=== PATIENT | male | born 1965 | race Caucasian/White ===

== ENCOUNTER 2019-08-16 10:45 | Inpatient (IN) | payer OTHER ==
[~2019-08-16] VITALS: Ht 193 cm; Wt 121.2 kg
[2019-08-16 12:40] VITALS: BP 146/98
[2019-08-16] MEDS ORDERED: PROPOFOL 50 ML ONE ×2 (12:46→16:21)
[2019-08-16] MEDS ORDERED: MIDAZOLAM 1 MG/ML, 2ML ONE (12:46)
[2019-08-16] MEDS ORDERED: FENTANYL PF 250 MCG/5ML ONE (12:47)
[2019-08-16] MEDS ORDERED: LIDOCAINE-MPF 2% ,5ML ONE (12:47)
[2019-08-16] MEDS ORDERED: ROCURONIUM 10MG/ML,5ML ONE (12:47)
[2019-08-16] MEDS ORDERED: PROPOFOL 10 MG/ML, 20ML ONE (12:47)
[2019-08-16] MEDS ORDERED: DEXAMETHASONE 4 MG/ML, 1ML ONE ×3 (12:47)
[2019-08-16] MEDS ORDERED: CEFAZOLIN 1,000 MG ONE ×2 (12:47)
[2019-08-16] MEDS ORDERED: ONDANSETRON 2MG/ML, 2ML ONE (12:47)
[2019-08-16] MEDS ORDERED: LACTATED RINGERS 1,000 ML IV SCH (12:56)
[2019-08-16] MEDS ORDERED: NONE PER PT (13:09)
[2019-08-16] MEDS ORDERED: EPINEPHRINE TOPICAL SOLN 1 MG/ML, 30ML ONE (13:51)
[2019-08-16] MEDS ORDERED: FLUORESCEIN SODIUM 500 MG/5 ML ONE (13:51)
[2019-08-16] MEDS ORDERED: OXYMETAZOLINE NASAL SPRAY 0.05%, 15ML ONE (13:51)
[2019-08-16] MEDS ORDERED: THROMBIN 5,000 UNIT VIAL TP ONE (13:51)
[2019-08-16] MEDS ORDERED: BACITRACIN 50,000 UNIT ONE (13:51)
[2019-08-16] MEDS ORDERED: LIDOCAINE 1%-EPI 1:100K, 20ML ONE (13:51)
[2019-08-16] MEDS ORDERED: MANNITOL PMX 20% 500 ML ONE (13:58)
[2019-08-16] MEDS ORDERED: FUROSEMIDE 20 MG/2 ML ONE (13:59)
[2019-08-16] MEDS ORDERED: ACETAMINOPHEN 650 MG/20.3 ML UDC PO PRN (15:30)
[2019-08-16] MEDS ORDERED: BISACODYL 10 MG SUPP PR PRN (15:30)
[2019-08-16] MEDS ORDERED: ACETAMINOPHEN 325 MG TABLET PO PRN (15:30)
[2019-08-16] MEDS ORDERED: LABETALOL 5MG/ML, 20ML IV PRN ×2 (15:30→18:30)
[2019-08-16] MEDS ORDERED: ONDANSETRON 2MG/ML, 2ML IV PRN ×2 (15:30→18:30)
[2019-08-16] MEDS ORDERED: MAGNESIUM HYDROXIDE 8%, 30ML UDC PO PRN (15:30)
[2019-08-16] MEDS ORDERED: BUPIVACAINE/PF 0.25% ONE (15:31)
[2019-08-16] MEDS ORDERED: HYDROCORTISONE 100 MG INJ. ONE (15:31)
[2019-08-16] MEDS ORDERED: CEFTRIAXONE 1,000 MG ONE (15:31)
[2019-08-16] MEDS ORDERED: EPINEPHRINE 1 MG/ML, 1ML ONE (15:32)
[2019-08-16] MEDS ORDERED: SUGAMMADEX 200 MG/2 ML IVPush ONE (17:41)
[2019-08-16] MEDS ORDERED: CEFTRIAXONE 1,000 MG IV SCH (18:00)
[2019-08-16] MEDS ORDERED: MORPHINE SULFATE 4 MG/ML, 1ML IV PRN (18:00)
[2019-08-16] MEDS ORDERED: hydrALAzine 20 MG/ML, 1ML IV PRN (18:30)
[2019-08-16] MEDS ORDERED: FENTANYL PF 100 MCG/2ML IV PRN (18:30)
[2019-08-16] MEDS ORDERED: MEPERIDINE/PF 25MG/ML,1ML IVPush PRN (18:30)
[2019-08-16] MEDS ORDERED: OXYcodone 5 MG/5 ML ORAL.SOL UDC PO PRN (18:30)
[2019-08-16] MEDS ORDERED: HYDROmorphone 2 MG/ML, 1ML IVPush PRN (18:30)
[2019-08-16] MEDS ORDERED: LORazepam 2 MG/ML, 1ML IVPush PRN (18:30)
[2019-08-16] MEDS: OXYcodone/APAP 5/325MG TABLET PO PRN (19:33)
[2019-08-16] MEDS ORDERED: POTASSIUM CHLORIDE 40 MEQ in SODIUM CHLORIDE 0.9% 1,000 ML IV SCH (19:42)
[2019-08-16 19:57] VITALS: BP 140/94
[2019-08-16] MEDS: HYDROCORTISONE 100 MG INJ. IVPush SCH (20:05)
[2019-08-16] MEDS: CEFAZOLIN PMX 1GM/50ML 50 ML IVPB SCH (20:05)
[2019-08-16] MEDS: LABETALOL 5MG/ML, 20ML IVPush SCH (20:24)
[2019-08-16] MEDS: CEFTRIAXONE PMX 1GM/50ML 50 ML IV SCH (21:00)
[2019-08-16] MEDS: morphine SULFATE 10 MG/ML, 1ML IV PRN (21:30)
[2019-08-17] MEDS: LABETALOL 5MG/ML, 20ML IVPush SCH (01:46)
[2019-08-17] MEDS: CEFAZOLIN PMX 1GM/50ML 50 ML IVPB SCH (03:39)
[2019-08-17] MEDS: HYDROCORTISONE 100 MG INJ. IVPush SCH ×3 (03:39→18:04)
[2019-08-17 04:23] LABS: BASOPHILS % (AUTO) 0 % (0-1); EOSINOPHILS % (AUTO) 0 % (1-7); LYMPHOCYTES # (AUTO) 0.69 x10^3/uL (1-3.4); LYMPHOCYTES % (AUTO) 11 % (22-44); MD NO; MEAN CORPUSCULAR HEMOGLOBIN 30.3 pg (27.5-34.5); MEAN CORPUSCULAR HGB CONC 32.7 g/dL (33.2-36.2); MEAN CORPUSCULAR VOLUME 92.4 fL (81-97); MEAN PLATELET VOLUME 7.1 fL (7.4-10.4); MONOCYTES # (AUTO) 0.24 x10^3/uL (0.2-0.8); MONOCYTES % (AUTO) 4 % (2-9); NEUTROPHILS # (AUTO) 5.54 x10^3/uL (1.8-6.8); NEUTROPHILS % (AUTO) 86 % (42-75); PLATELET COUNT 246 x10^3/uL (130-400); RED BLOOD COUNT 4.18 x10^6/uL (4.38-5.82); RED CELL DISTRIBUTION WIDTH 14.1 % (9.4-14.8)
[2019-08-17] MEDS: morphine SULFATE 10 MG/ML, 1ML IV PRN ×3 (04:25→17:11)
[2019-08-17 04:35] LABS: ANION GAP 5 mmol/L (5-15); CALCIUM 8.1 mg/dL (8.5-10.1); CHLORIDE 110 mmol/L (98-107); CREATININE 1.05 mg/dL (0.7-1.3)
[2019-08-17] MEDS: SENNA/DOCUSATE TABLET PO SCH (07:54)
[2019-08-17 09:28] LABS: ANION GAP 5 mmol/L (5-15); CALCIUM 8.3 mg/dL (8.5-10.1); CHLORIDE 111 mmol/L (98-107); CREATININE 1.06 mg/dL (0.7-1.3)
[2019-08-17] MEDS: SODIUM CHLORIDE 0.9% 1,000 ML IV SCH ×2 (10:49→23:36)
[2019-08-17] MEDS: INSULIN LISPRO 100 UNITS/ML, PEN SQ-INSULIN SCH ×3 (11:00→20:43)
[2019-08-17] MEDS ORDERED: HYDROCORTISONE 20 MG TABLET PO SCH (12:00)
[2019-08-17 12:51] LABS: ANION GAP 4 mmol/L (5-15); CALCIUM 8.8 mg/dL (8.5-10.1); CHLORIDE 112 mmol/L (98-107); CREATININE 1.05 mg/dL (0.7-1.3)
[2019-08-17] MEDS ORDERED: GADOTERATE 10 MMOL/20 ML SYR ONE (13:56)
[2019-08-17] MEDS ORDERED: HYDROCORTISONE 100 MG INJ. IVPush SCH (19:00)
[2019-08-17] MEDS: OXYcodone/APAP 5/325MG TABLET PO PRN (19:05)
[2019-08-17] MEDS: CEFTRIAXONE PMX 1GM/50ML 50 ML IV SCH (20:43)
[2019-08-17] MEDS: SODIUM CHLORIDE NASAL SPRAY 45ML BOTTLE NAS PRN (21:05)
[2019-08-18] MEDS: HYDROCORTISONE 100 MG INJ. IVPush SCH ×3 (03:07→19:25)
[2019-08-18] MEDS: SODIUM CHLORIDE NASAL SPRAY 45ML BOTTLE NAS PRN ×2 (03:14→04:18)
[2019-08-18] MEDS: morphine SULFATE 10 MG/ML, 1ML IV PRN (03:15)
[2019-08-18] MEDS: OXYcodone/APAP 5/325MG TABLET PO PRN ×4 (04:17→22:29)
[2019-08-18 04:23] LABS: BASOPHILS # (AUTO) 0.04 x10^3/uL (0-0.1); BASOPHILS % (AUTO) 1 % (0-1); EOSINOPHILS # (AUTO) 0.04 x10^3/uL (0-0.4); EOSINOPHILS % (AUTO) 1 % (1-7); LYMPHOCYTES % (AUTO) 21 % (22-44); MD NO; MEAN CORPUSCULAR HEMOGLOBIN 30.9 pg (27.5-34.5); MEAN CORPUSCULAR HGB CONC 32.4 g/dL (33.2-36.2); MEAN CORPUSCULAR VOLUME 95.4 fL (81-97); MEAN PLATELET VOLUME 7.3 fL (7.4-10.4); MONOCYTES # (AUTO) 0.71 x10^3/uL (0.2-0.8); MONOCYTES % (AUTO) 8 % (2-9); NEUTROPHILS # (AUTO) 6.07 x10^3/uL (1.8-6.8); NEUTROPHILS % (AUTO) 70 % (42-75); PLATELET COUNT 224 x10^3/uL (130-400); RED BLOOD COUNT 4.08 x10^6/uL (4.38-5.82); RED CELL DISTRIBUTION WIDTH 14.5 % (9.4-14.8)
[2019-08-18 04:33] LABS: ALANINE AMINOTRANSFERASE 23 U/L (12-78); ALBUMIN 2.8 g/dL (3.4-5.0); ANION GAP 4 mmol/L (5-15); CALCIUM 8.2 mg/dL (8.5-10.1); CHLORIDE 113 mmol/L (98-107); CREATININE 0.97 mg/dL (0.7-1.3)
[2019-08-18 04:35] LABS: ALKALINE PHOSPHATASE 46 U/L (45-117); BILIRUBIN,TOTAL 0.2 mg/dL (0.2-1.0); TOTAL PROTEIN 6.3 g/dL (6.4-8.2)
[2019-08-18] MEDS: INSULIN LISPRO 100 UNITS/ML, PEN SQ-INSULIN SCH ×4 (07:00→20:27)
[2019-08-18] MEDS: SENNA/DOCUSATE TABLET PO SCH (08:17)
[2019-08-18 20:14] VITALS: BP 155/82
[2019-08-18] MEDS: CEFTRIAXONE PMX 1GM/50ML 50 ML IV SCH (20:27)
[2019-08-19 01:34] VITALS: BP 142/82
[2019-08-19] MEDS: OXYcodone/APAP 5/325MG TABLET PO PRN ×2 (02:35→13:26)
[2019-08-19] MEDS: HYDROCORTISONE 100 MG INJ. IVPush SCH ×2 (02:40→12:27)
[2019-08-19 05:57] LABS: BASOPHILS % (AUTO) 0 % (0-1); EOSINOPHILS # (AUTO) 0.01 x10^3/uL (0-0.4); EOSINOPHILS % (AUTO) 0 % (1-7); LYMPHOCYTES # (AUTO) 1.34 x10^3/uL (1-3.4); LYMPHOCYTES % (AUTO) 18 % (22-44); MD NO; MEAN CORPUSCULAR HEMOGLOBIN 30.9 pg (27.5-34.5); MEAN CORPUSCULAR HGB CONC 32.4 g/dL (33.2-36.2); MEAN CORPUSCULAR VOLUME 95.4 fL (81-97); MEAN PLATELET VOLUME 7.4 fL (7.4-10.4); MONOCYTES # (AUTO) 0.47 x10^3/uL (0.2-0.8); MONOCYTES % (AUTO) 6 % (2-9); NEUTROPHILS # (AUTO) 5.55 x10^3/uL (1.8-6.8); NEUTROPHILS % (AUTO) 75 % (42-75); PLATELET COUNT 216 x10^3/uL (130-400); RED CELL DISTRIBUTION WIDTH 14.7 % (9.4-14.8)
[2019-08-19 06:03] LABS: ANION GAP 3 mmol/L (5-15); CALCIUM 8.4 mg/dL (8.5-10.1); CHLORIDE 109 mmol/L (98-107); CREATININE 0.93 mg/dL (0.7-1.3)
[2019-08-19 07:25] VITALS: BP 155/95
[2019-08-19] MEDS: INSULIN LISPRO 100 UNITS/ML, PEN SQ-INSULIN SCH ×2 (09:10→12:19)
[2019-08-19] MEDS: SENNA/DOCUSATE TABLET PO SCH (09:10)
== END 2019-08-19 13:49 | disposition home or self-care (01) | DRG 615 ==
LOC: ORIP 10:45 → CCU 18:43 → 4EST 08-18 12:07
PROVIDERS: ADMIT Neurological Surgery; ATTEND Hospitalist
PROC: 0JB80ZZ Excision of Abdomen Subcutaneous Tissue and Fascia, Open Approach (ICD-10-PCS; 2019-08-16)
PROC: 09U Ear, Nose, Sinus, Supplement (ICD-10-PCS; 2019-08-16)
PROC: 09BV0ZZ Excision of Left Ethmoid Sinus, Open Approach (ICD-10-PCS; 2019-08-16)
PROC: 09BU0ZZ Excision of Right Ethmoid Sinus, Open Approach (ICD-10-PCS; 2019-08-16)
PROC: 099R0ZZ Drainage of Left Maxillary Sinus, Open Approach (ICD-10-PCS; 2019-08-16)
PROC: 099Q0ZZ Drainage of Right Maxillary Sinus, Open Approach (ICD-10-PCS; 2019-08-16)
PROC: 09BL0ZZ Excision of Nasal Turbinate, Open Approach (ICD-10-PCS; 2019-08-16)
PROC: 03HY32Z Insertion of Monitoring Device into Upper Artery, Percutaneous Approach (ICD-10-PCS; 2019-08-16)
PROC: 0GB04ZZ Excision of Pituitary Gland, Percutaneous Endoscopic Approach (ICD-10-PCS; principal; 2019-08-16 12:30)
PROC: 0T9B70Z Drainage of Bladder with Drainage Device, Via Natural or Artificial Opening (ICD-10-PCS; 2019-08-17)
DX: D35.2 Benign neoplasm of pituitary gland (principal); J32.9 Chronic sinusitis, unspecified; D64.9 Anemia, unspecified; J34.2 Deviated nasal septum; T38.0X5A Adverse effect of glucocorticoids and synthetic analogues, initial encounter; R73.9 Hyperglycemia, unspecified; Y92.89 Other specified places as the place of occurrence of the external cause; Z96.653 Presence of artificial knee joint, bilateral; Z80.9 Family history of malignant neoplasm, unspecified
CPT/HCPCS: 36415; J3490; 70553; 80048; 80053; 81003; 82962; 83735; 84443; 85025; 86850; 86900; 87081; 88305; 88313; 88333; 88342; 88360; G0378; J0171; J0690; J0696; J1100; J2250; J2405; J2704; J3010; J3480; A9575; J1720; J1815; J1940; J2270; J7030; J7120

== ENCOUNTER → 2019-08-16 | Outpatient (CLI) | payer OTHER ==
[~2019-08-16] MED LIST: GADOTERATE 10 MMOL/20 ML SYR ONE; NONE PER PT
[2019-08-17 09:41] LABS: FREE T4 (FREE THYROXINE) 0.9 ng/dL (0.76-1.46)
== END | disposition home or self-care (01) ==
LOC: RAD 10:15
PROVIDERS: ATTEND Neurological Surgery
DX: D35.2 Benign neoplasm of pituitary gland (principal); G93.9 Disorder of brain, unspecified
CPT/HCPCS: 70450; 70553; A9575; 36415; 82024; 82533; 83003; 83930; 84146; 84305; 84436; 84439; 84443; 84588

== ENCOUNTER → 2019-09-21 | Outpatient (CLI) | payer OTHER ==
[~2019-09-21] MED LIST changes: -GADOTERATE 10 MMOL/20 ML SYR ONE
== END | disposition home or self-care (01) ==
LOC: ROC 10:14
PROVIDERS: ATTEND Radiology Radiation Oncology
DX: D35.2 Benign neoplasm of pituitary gland (principal)
CPT/HCPCS: 99214; G0463